=== PATIENT | male | born 1990 | race Two or more races ===

== ENCOUNTER 2024-06-23 12:08 | Emergency (ER) | payer OTHER ==
[~2024-06-23] VITALS: Ht 165.1 cm; Wt 82.1 kg
[~2024-06-23 12:08] MED LIST: INTESTINEX1 CA1 PO; LISINOPRIL20 MG
[2024-06-23] MEDS ORDERED: [UNRECOGNIZED DRUG - OTHER] (13:43)
[2024-06-23 13:44] VITALS: O2SAT 99
[2024-06-23 16:21] LABS: HEMOGLOBIN 15.4 g/dL (13-16.00); MEAN CELL VOLUME 91.3 fL (80.0-100.00); MEAN CORPUSCULAR HEMOGLOBIN 31.3 pg (27.00-32.0); MEAN CORPUSCULAR HGB CONC 34.3 g/dl (32.0-36.0); PLATELET COUNT 233 K/uL (150-450); RED BLOOD COUNT 4.93 M/uL (4.00-6.00); RED CELL DISTRIBUTION WIDTH 13.3 % (11.5-14.5)
[2024-06-23 17:29] VITALS: BP 122/77
== END 2024-06-23 17:31 | disposition home or self-care (01) ==
LOC: ER 12:10
PROVIDERS: General Practice
DX: J00 Acute nasopharyngitis [common cold] (principal); I10 Essential (primary) hypertension; Z20.822 Contact with and (suspected) exposure to COVID-19